=== PATIENT | male | born 1940 | race Caucasian/White ===

== ENCOUNTER 2022-04-19 13:11 | Emergency (ER) | payer BC, SELFPAY ==
[2022-04-19 13:24] VITALS: BP 167/97; PULSE 81; RESP 16; TEMP 36.6; O2SAT 97
--- NOTE | 2022-04-19 13:27 | ED.URI ---
HPI - URI/Sore Throat General Chief Complaint: Upper Respiratory Infection Stated Complaint: SINUS CONGESTION Time Seen by Provider: 04/19/22 13:22 Source: patient and RN notes reviewed Mode of arrival: ambulatory Limitations: no limitations History of Present Illness HPI Narrative: 81-year-old male presents concern for 10 day history of sinus congestion, pressure, discomfort. He denies cough, shortness of breath, fever, body aches, chills, sweats. Reports he has been using saline rinses without relief. MD elicited complaint: nasal congestion Related Data Home Medications Medication Instructions Recorded Confirmed amlodipine 10 mg tablet 10 mg PO DAILY 04/19/22 04/19/22 doxazosin 4 mg tablet 4 mg PO DAILY 04/19/22 04/19/22 gabapentin 100 mg capsule 100 mg PO DAILY 04/19/22 04/19/22 Allergies Allergy/AdvReac Type Severity Reaction Status Date / Time Penicillins Allergy Unknown Unknown Verified 04/19/22 13:17 Review of Systems Review of Systems: CONSTITUTIONAL: Denies malaise, chills, sweats, or fever. EYES: Denies visual changes, redness, or discharge. ENT: Reports rhinorrhea, congestion, sinus pain. Denies otalgia and sore throat. CARDIOVASCULAR: Denies chest pain, palpitations, or edema. RESPIRATORY: Denies cough. Denies dyspnea. GASTROINTESTINAL: Denies abdominal pain, nausea, vomiting, diarrhea SKIN: Denies rash or itching. MUSCULOSKELETAL: Denies myalgia. NEUROLOGIC: Denies headache. All systems reviewed & are unremarkable except as noted in HPI and below PMFSH Social History Social History Smoking end date: 06/09/82 Alcohol intake: current Comments At time of signature, agree with nursing past medical, surgical, social and family history. There is no relevant family history pertinent to the presenting complaint Exam Narrative: GENERAL: Well-appearing, well-nourished, and in no acute distress. HEAD: Normocephalic EYES: PERRLA, conjunctivae clear ENT: Nares clear, turbinates edematous and erythematous, clear discharge. Mucous membranes moist. TM pearly diana with dull light reflex bilaterally; no tragal tenderness. Oropharynx not erythematous without lesions. Tonsils not enlarged and without exudate, no drooling, no hoarseness, no trismus, uvula midline. NECK: Supple. No lymphadenopathy CHEST: Clear to auscultation, breath sounds equal. No wheezing, rhonchi, rales, or stridor. No respiratory distress, speaks in full sentences. HEART: Regular rate and rhythm. No murmur heard. SKIN: Warm, dry, no rash. NEURO: Alert and oriented x3. PSYCH: Normal mood and affect Course Course Emergency Course: Patient is aware of diagnosis, understands and agrees to treatment plan. Anticipatory guidance given. Patient agrees to follow-up as directed and is aware of reasons to seek care at the emergency department. Portions of this record may have been created with voice recognition software Level of Care: Express Care Visit Vital Signs Vital signs: Vital Signs Temperature 97.9 F 04/19/22 13:24 Pulse Rate 81 04/19/22 13:24 Respiratory Rate 16 04/19/22 13:24 Blood Pressure 167/97 H 04/19/22 13:24 Pulse Oximetry 97 04/19/22 13:24 Temperature 97.9 F 04/19/22 13:24 Pulse Rate 81 04/19/22 13:24 Respiratory Rate 16 04/19/22 13:24 Blood Pressure 167/97 H 04/19/22 13:24 Pulse Oximetry 97 04/19/22 13:24 Reviewed. MDM - URI/Sore Throat MDM Narrative Medical decision making narrative: Differential diagnosis considered: Castillo virus, strep pharyngitis, allergic rhinitis, upper respiratory tract infection, sinusitis, rhinosinusitis, nasopharyngitis. viral pharyngitis, otitis media, otitis externa, pneumonia, bronchitis, viral cough syndrome, viral syndrome, and influenza. Exam findings show no acute concerns or changes; patient is non-toxic appearing and is in no distress. Patient is appropriate for outpatient treatment and follow-
== END 2022-04-19 13:40 | disposition home or self-care (01) ==
PROVIDERS: Emergency Provider Nurse Practitioner; PCP Family Medicine
DX: J01.90 Acute sinusitis, unspecified (principal); B96.89 Other specified bacterial agents as the cause of diseases classified elsewhere
CPT/HCPCS: 99213; G0463

== ENCOUNTER 2022-06-20 10:38 | Emergency (ER) | payer BC, SELFPAY ==
--- NOTE | 2022-06-20 10:44 | ED.URI ---
HPI - URI/Sore Throat General Chief Complaint: Upper Respiratory Infection Stated Complaint: headache, runny nose, congestion Time Seen by Provider: 06/20/22 10:53 Source: patient and RN notes reviewed Mode of arrival: ambulatory Limitations: no limitations History of Present Illness HPI Narrative: 81-year-old male presents concern for sinus infection. Reports history of sinus deformity that puts him at risk for sinus infection. He reports frequent sinusitis. Reports 40 symptom of worsening sinus congestion, pain, pressure. Reports he uses saline rinses with no relief. He denies cough, fever, chills, sweats, body aches. MD elicited complaint: nasal congestion and sinus pain Related Data Home Medications Medication Instructions Recorded Confirmed amlodipine 10 mg tablet 10 mg PO DAILY 04/19/22 06/20/22 doxazosin 4 mg tablet 4 mg PO DAILY 04/19/22 06/20/22 gabapentin 100 mg capsule 100 mg PO DAILY 04/19/22 06/20/22 Allergies Allergy/AdvReac Type Severity Reaction Status Date / Time Penicillins Allergy Unknown Unknown Verified 06/20/22 10:55 Review of Systems Review of Systems: CONSTITUTIONAL: Denies malaise, chills, sweats, or fever. EYES: Denies visual changes, redness, or discharge. ENT: Reports rhinorrhea, congestion, sinus pain. Denies otalgia and sore throat. CARDIOVASCULAR: Denies chest pain, palpitations, or edema. RESPIRATORY: Denies cough. Denies dyspnea. GASTROINTESTINAL: Denies abdominal pain, nausea, vomiting, diarrhea SKIN: Denies rash or itching. MUSCULOSKELETAL: Denies myalgia. NEUROLOGIC: Denies headache. All systems reviewed & are unremarkable except as noted in HPI and below PMFSH Social History Social History Smoking end date: 06/09/82 Alcohol intake: current Comments At time of signature, agree with nursing past medical, surgical, social and family history. There is no relevant family history pertinent to the presenting complaint Exam Narrative: GENERAL: Well-appearing, well-nourished, and in no acute distress. HEAD: Normocephalic EYES: PERRLA, conjunctivae clear ENT: Nares clear, turbinates edematous and erythematous, yellow discharge. Mucous membranes moist. TM pearly diana with sharp light reflex bilaterally; no tragal tenderness. Oropharynx not erythematous without lesions. Tonsils not enlarged and without exudate, no drooling, no hoarseness, no trismus, uvula midline. NECK: Supple. No lymphadenopathy CHEST: Clear to auscultation, breath sounds equal. No wheezing, rhonchi, rales, or stridor. No respiratory distress, speaks in full sentences. HEART: Regular rate and rhythm. No murmur heard. SKIN: Warm, dry, no rash. NEURO: Alert and oriented x3. PSYCH: Normal mood and affect Course Course Emergency Course: Patient is aware of diagnosis, understands and agrees to treatment plan. Anticipatory guidance given. Patient agrees to follow-up as directed and is aware of reasons to seek care at the emergency department. Portions of this record may have been created with voice recognition software Level of Care: Express Care Visit Vital Signs Vital signs: Reviewed. MDM - URI/Sore Throat MDM Narrative Medical decision making narrative: Differential diagnosis considered: Castillo virus, strep pharyngitis, allergic rhinitis, upper respiratory tract infection, sinusitis, rhinosinusitis, nasopharyngitis. viral pharyngitis, otitis media, otitis externa, pneumonia, bronchitis, viral cough syndrome, viral syndrome, and influenza. Exam findings show no acute concerns or changes; patient is non-toxic appearing and is in no distress. Patient is appropriate for outpatient treatment and follow-up. Lab Data Attestation: I reviewed the patient's lab results. Critical Care Time Critical Care Time Critical Care Time: No Discharge Plan Discharge Clinical Impression: Chronic sinusitis Patient Disposition: Home, Self-Care Condition:
[2022-06-20 10:50] VITALS: BP 148/92; PULSE 74; RESP 16; TEMP 36.4; O2SAT 98
[2022-06-20 10:55] VITALS: BP 148/92; PULSE 74; RESP 16; TEMP 36.4; O2SAT 98
== END 2022-06-20 11:04 | disposition home or self-care (01) ==
PROVIDERS: Emergency Provider Nurse Practitioner; PCP Family Medicine
DX: J32.9 Chronic sinusitis, unspecified (principal)
CPT/HCPCS: 99213; G0463

== ENCOUNTER → 2022-07-18 08:58 | Outpatient (CLI) | payer BC, SELFPAY ==
--- NOTE | ~2022-07-18 | CT_ITS ---
EXAMINATION: CT sinus wo con DATE: 07/18/2022 09:09 INDICATION: Chronic sinusitis. TECHNIQUE: Computed tomography (CT) of the paranasal sinuses was performed without intravenous contra st. Iterative reconstruction technique was employed. The dose-length product was 285.32 mGy-cm. COMPARISON: None FINDINGS: There is mild mucosal thickening in the frontal sinuses. There is mild mucosal thickening i n the bilateral anterior and posterior ethmoid sinuses. The sphenoid sinuses are clear. There is mode rate mucosal thickening in the maxillary sinuses. There is rightward deviation of the nasal septum. T he middle turbinates are partially paradoxical. Right ostiomeatal unit is patent. Left ostiomeatal un it is occluded at the hiatus semilunaris. There is a Priya cell on the left. IMPRESSION: 1. Mucosal thickening in the paranasal sinuses. Reviewed, dictated and finalized at location A. EXPORT OPERATIONS AGENT
== END ==
PROVIDERS: PCP Family Medicine; Visit Provider Otolaryngology
DX: J32.9 Chronic sinusitis, unspecified (principal)
CPT/HCPCS: 70486

== ENCOUNTER 2023-05-27 09:12 | Emergency (ER) | payer BC, SELFPAY ==
[2023-05-27 09:52] VITALS: BP 147/73; PULSE 89; RESP 20; TEMP 36.2; O2SAT 95
--- NOTE | 2023-05-27 10:06 | ED.URI ---
HPI - URI/Sore Throat General Chief Complaint: Upper Respiratory Infection Stated Complaint: cough,congestion Time Seen by Provider: 05/27/23 09:58 Source: patient and RN notes reviewed Mode of arrival: ambulatory Limitations: no limitations History of Present Illness HPI Narrative: 82-year-old male presents with concern for 3 day history of cough, nasal congestion. He reports he has been taking NyQuil. He reports feeling feverish but did not take his temperature. He denies any known sick contacts. MD elicited complaint: cough Related Data Home Medications Medication Instructions Recorded Confirmed amlodipine 10 mg tablet 10 mg PO DAILY 04/19/22 05/27/23 doxazosin 4 mg tablet 4 mg PO DAILY 04/19/22 05/27/23 gabapentin 100 mg capsule 100 mg PO TID 04/19/22 05/27/23 Allergies Allergy/AdvReac Type Severity Reaction Status Date / Time Penicillins AdvReac Mild Hives Verified 05/27/23 09:36 Review of Systems Review of Systems: CONSTITUTIONAL: Denies malaise, chills, sweats. Reports tactile fever. EYES: Denies visual changes, redness, or discharge. ENT: Reports rhinorrhea, congestion. Denies sinus pain, otalgia and sore throat. CARDIOVASCULAR: Denies chest pain, palpitations, or edema. RESPIRATORY: Reports cough. Denies dyspnea. GASTROINTESTINAL: Denies abdominal pain, nausea, vomiting, diarrhea SKIN: Denies rash or itching. MUSCULOSKELETAL: Denies myalgia. NEUROLOGIC: Denies headache. All systems reviewed & are unremarkable except as noted in HPI and below PMFSH Social History Social History Smoking end date: 06/09/82 Alcohol intake: current Comments At time of signature, agree with nursing past medical, surgical, social and family history. There is no relevant family history pertinent to the presenting complaint Exam Narrative: GENERAL: Well-appearing, well-nourished, and in no acute distress. HEAD: Normocephalic EYES: PERRLA, conjunctivae clear ENT: Nares clear. Mucous membranes moist. TM pearly diana with sharp light reflex bilaterally; no tragal tenderness. Oropharynx not erythematous without lesions. Tonsils not enlarged and without exudate, no drooling, no hoarseness, no trismus, uvula midline. NECK: Supple. No lymphadenopathy CHEST: Clear to auscultation, breath sounds equal. No wheezing, rhonchi, rales, or stridor. No respiratory distress, speaks in full sentences. HEART: Regular rate and rhythm. No murmur heard. SKIN: Warm, dry, no rash. NEURO: Alert and oriented x3. PSYCH: Normal mood and affect Course Course Emergency Course: Patient is aware of diagnosis, understands and agrees to treatment plan. Anticipatory guidance given. Patient agrees to follow-up as directed and is aware of reasons to seek care at the emergency department. Portions of this record may have been created with voice recognition software Level of Care: Express Care Visit Vital Signs Vital signs: Vital Signs Temperature 97.1 F L 05/27/23 09:52 Pulse Rate 89 05/27/23 09:52 Respiratory Rate 20 05/27/23 09:52 Blood Pressure 147/73 H 05/27/23 09:52 Pulse Oximetry 95 05/27/23 09:52 Oxygen Delivery Room Air 05/27/23 09:52 Temperature 97.1 F L 05/27/23 09:52 Pulse Rate 89 05/27/23 09:52 Respiratory Rate 20 05/27/23 09:52 Blood Pressure 147/73 H 05/27/23 09:52 Pulse Oximetry 95 05/27/23 09:52 Oxygen Delivery Room Air 05/27/23 09:52 Reviewed. MDM - URI/Sore Throat MDM Narrative Medical decision making narrative: Differential diagnosis considered: Castillo virus, strep pharyngitis, allergic rhinitis, upper respiratory tract infection, sinusitis, rhinosinusitis, nasopharyngitis. viral pharyngitis, otitis media, otitis externa, pneumonia, bronchitis, viral cough syndrome, viral syndrome, and influenza. Exam findings show no acute concerns or changes; patient is non-toxic appearing and is in no distress. Patient is appropri
== END 2023-05-27 10:10 | disposition home or self-care (01) ==
PROVIDERS: Emergency Provider Nurse Practitioner; PCP Family Medicine
DX: B34.9 Viral infection, unspecified (principal); Z79.899 Other long term (current) drug therapy; Z20.822 Contact with and (suspected) exposure to COVID-19
CPT/HCPCS: 87426; 99213; C9803; G0463

== ENCOUNTER 2024-10-07 13:03 | Outpatient (CLI) | payer BC, SELFPAY ==
[2024-10-07 13:34] LABS: Hematocrit 41.7 % (42.0-52.0); Hemoglobin 13.7 g/dL (14.0-18.0); Mean Corpuscular HGB Conc 32.9 g/dl (32-36); Mean Corpuscular Hemoglobin 28.4 pg (26-34); Mean Corpuscular Volume 86.3 fl (80-100); Mean Platelet Volume 10.2 fl (7.4-10.4); Platelet Count Result 157 k/mm3 (150-375); Red Blood Count 4.83 M/mm3 (4.6-6.20); White Blood Count 7.9 K/mm3 (4.5-10.0)
[2024-10-07 13:43] LABS: Add Urine Microscopic? YES; Appearance Urine Clear (Clear); Bacteria Urine None Seen /hpf; Bilirubin Urine Negative (Negative); Blood Urine Negative (Negative); Color Urine Yellow (Yellow); Glucose Urine UA Negative (Negative); Ketones Urine Negative (Negative); Leukocyte Esterase Ur Negative LEU/UL (Negative); Nitrate Urine Negative (Negative); Non Pathogenic Casts 0-2; Protein Urine Trace mg/dL (Negative); RBC Urine 0-2 /hpf (0-2); Specific Grav Ur 1.012 (1.001-1.035); Squamous Epithelial Cell Urine None Seen /hpf (Few); Urobilinogen Urine 0.2 mg/dL (<2.0); WBC Urine 0-5 /hpf (0-3); pH Urine 5.5 (5.0-9.0)
[2024-10-07 13:44] LABS: Albumin Level 4.2 g/dL (3.5-5.1); Anion Gap 10 mmol/L (4-12); Blood Urea Nitrogen 24 mg/dL (9-20); Calcium 8.9 mg/dL (8.4-10.2); Carbon Dioxide 23 mmol/L (22-30); Chloride 108 mmol/L (98-107); Creatine Kinase 120 U/L (55-170); Estimated Glomerular Filt Rate > 60; Glucose 92 mg/dL (65-110); Phosphorus 4.1 mg/dL (2.5-4.5); Potassium 4.2 mmol/L (3.4-5.0); Sodium 141 mmol/L (137-145)
[2024-10-07 13:46] LABS: Creatinine Urine 78.3 mg/dL; Total Protein Urine Random 23 mg/dL; Ur Ttl Prot Creatinine Ratio 0.29 mg/mg (0-0.20)
[2024-10-07 13:52] LABS: Complement C3 102 mg/dL (88-165)
[2024-10-07 13:57] LABS: Parathyroid Intact 43.2 pg/mL (14.5-75.2)
[2024-10-07 14:01] LABS: Erythrocyte Sedimentation Rate 14 mm/hr (0-20)
--- OUTSIDE RECORDS SUMMARY | 2024-10-07 14:03 | XMS_ITS | Data Portability ---
Author Organization [facility] [address], Main Office Address [address] [place] [address] Assessment No assessment recorded. Plan of Treatment Reminders Order Date Submit Date Provider Last Modified By Organization Details Last Modified Time Details Appointments None record ed. Lab None record ed. Referral None record ed. Procedures None record ed. Surgeries None record ed. Imaging None record ed. Medication Orders None record ed. Patient TargetsNo targets recorded. Patient Instructions Encounter Date Encounter Id Patient Instructions Last Modified By Organization Details Last Modified Time 08/20/2022 [id number] since he is not symptomatic surgical intervention is not recommended. We may use antibiotics from time to time however. [email or web address] Not available 08/20/2022 11:55:49 Reason for Referral None Reported. Results Created Date Observation Date Name Description Value Unit Range Abnormal Flag Note LastModifiedBy Organization Detail LastModifiedTime 07/18/19 23 07/18/2022 CT, sinus es, w/o contr ast No observ ation record ed. [id number] [facility] [address], [place], [address], 08/08/2022 01:48:18 07/19/19 23 07/18/2022 CT, sinus es, w/o contr ast No observ ation record ed. [id number] [facility] [address], [place], [address], 08/08/2022 01:48:18 Result Notes None recorded. 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 Procedures Surgical History None recorded. Imaging Results Imaging Date Name Status LastModified by Organiz ation Details LastModified Time 07/18/2022 CT, sinuses, w/o contrast completed [id number] [facility] [address], [place], [address], 08/08/2022 01:48:18 07/18/2022 CT, sinuses, w/o contrast completed [id number] [facility] [address], [place], [address], 08/08/2022 01:48:18 Procedure Notes None recorded. Medical Equipment None Reported. Allergies Allergen ID Allergen Name Allergen Category Reaction Reaction Severity Criticality Documentation Date Start Date Code Code System Note Provider Name and Address Organization Details Recorded Time 07740 Product containin g penicilli n (product) medicatio n Not available Not available Not available 08/08/2022 30316 8001 SNOMED Not Available [facility] 3 01:48:14 Medications Name Sig Start Date Stop Date Status Note LastModified by Organization Details LastModified Time doxycycline hyclate 100 mg capsule 07/11 completed Not Available Not Available Not Available azithromyci n 250 mg tablet 08/19 completed Not Available Not Available Not Available amlodipine 5 mg tablet 07/11 completed Not Available Not Available Not Available doxycycline monohydrate 100 mg tablet TAKE 1 TABLET BY MOUTH TWICE DAILY FOR 7 DAYS 07/11 completed Not Available Not Available Not Available amlodipine 10 mg tablet active Not Available Not Available Not Available triamcinolo ne acetonide 0.1 % topical ointment APPLY TOPICALLY TO THE AFFECTED AREA ON RIGHT FOREARM TWICE DAILY active Not Available Not Available No t Available doxazosin 4 mg tablet active Not Available Not Available No t Available mupirocin 2 % topical ointment APPLY SMALL AMOUNT TOPICALLY TO THE AFFECTED AREA THREE TIMES DAILY 2023 active Not Available Not Available Not Avai lable gabapentin 100 mg capsule active Not Available Not Available Not Available methylpredn isolone 4 mg tablets in a dose pack FOLLOW PACKAGE DIRECTION S 10/09 completed Not Available Not Available Not Available cefdinir 300 mg capsule TAKE 1 CAPSULE BY MOUTH TWICE DAILY FOR 10 DAYS active Not Available Not Available No t Available fluticasone propionate 50 mcg/actuati on nasal spray,suspe nsion SHAKE LIQUID AND USE 2 SPRAYS IN EACH NOSTRIL DAILY FOR 14 DAYS active Not Available Not Available No t Available naproxen 500 mg tablet active Not Available Not Available Not Available chlorhexidi ne gluconate 0.12 % mouthwash active Not Available Not Available No t Available aspirin 81 mg capsule Take 1 capsule every day by oral route. 2022 active Not Available Not Available Not Avai lable Vitals Date Recorded Body mass index (BMI) Body height Body temperature Body weight Provider Name and Address Organization Details Last Updated DateTime 07/11/2022 30.1 kg/m2 185.42 cm 97.6 [degF] 393044.0 6 g Not Available [facility] 08/08/2022 01:47:31 Date Recorded Body height Body mass index (BMI) Body weight Body temperature Provider Name and Address Organization Details Last Updated DateTime 08/20/2022 185.42 cm 30.2 kg/m2 847897.65 g 97.7 [degF] Cheryl Mota CMA [place] [facility] [place] [employer] [facility] 08/20/2022 11:37:18 Social History Question Answer Notes LastModified by Organizat ion Details LastModified Time Tobacco Smoking Status Former Smoker Not Available [facility] 08/08/2022 01:46:59 What Is Your Level Of Alcohol Consumption? Occasional [id number] Information not available 08/08/2022 Sex: Unknown Functional Status None recorded. Mental Status None recorded. Family History Relationship Description Onset Age of this Age Resolved Age Notes LastModified by Organization Details LastModified Time Father No current problems or disability [id number] Not available 08/08/2022 01:47:27 Mother No current problems or disability [id number] Not available 08/08/2022 01:47:27 Medical History Condition Response USE OF BLOOD THINNERS Y HYPERTENSION Y Past Encounters Encounter ID Performer Location Encounter Start Date Encounter Closed Date Diagnosis/Indication Diagnosis SNOMED-CT Code Diagnosis ICD10 Code Diagnosis Note [id number] MD REANNA [facility] [place] [address] [place] [address] 07/11/2022 00:00:00 07/11/2022 14:29:39 [id number] MD REANNA [facility] [place] [address] [place] [address] 08/20/2022 11:21:54 08/20/2022 11:59:34 Chronic pansinusitis 12925343 J32.4 Perforatio n of nasal septum 66491851 J34.89 Health Concerns Section Related Observation LastModified by Organization Detai ls LastModified Time None Recorded Concern Status LastModified by Organization Details LastModified Time None Recorded Advance Directives Directive None Recorded Payers Encounter Date Sequence Insurance Name Policy Number Policy Yadav Covered Member ID Yadav Member ID Guarantor Name 08/20/2022 1 [place] [employer] ([place]) [address] Rodney Little [id number] Rodney Little Notes Date Note Type Note Provider Name and Address Organization Details Recorded Time 08/20/2022 text/html The CT scan demonstrates pansinus use sinus but he reports that he is doing very well with Bactroban. He reports that he is otherwise asymptomatic. Shadi Roman MD [address] [place] [address], [facility] [address], [place], [address], [facility] 08/20/2022 11:56:09
[2024-10-11 13:39] LABS: Complement Total CH50 57 U/mL (31-60)
[2024-10-12 11:03] LABS: Kappa\\Lambda Light Chains 1.77 (0.26-1.65); Lambda Light Chain 22.7 mg/L (5.7-26.3)
== END 2024-10-07 13:04 | disposition home or self-care (01) ==
LOC: ANHLAB 13:04
PROVIDERS: PCP Family Medicine; Visit Provider Internal Medicine Nephrology
DX: R94.4 Abnormal results of kidney function studies (principal)
CPT/HCPCS: 36415; 80069; 81001; 82550; 82570; 83883; 83970; 84156; 85027; 85652; 86038; 86039; 86160; 86162; 86334

== ENCOUNTER 2024-10-08 14:57 | Outpatient (NON) | payer BC, SELFPAY ==
[2024-10-08 15:21] LABS: Total Volume 24 Hour Urine 1950 ml
--- OUTSIDE RECORDS SUMMARY | 2024-10-09 14:45 | XMS_ITS | Data Portability ---
Author Organization [facility] [email or web address], Main Office Address [address] [place] [address] Assessment No assessment recorded. Plan of Treatment [...] By Organization Details Last Modified Time 08/20/2022 [id number] since he is not symptomatic surgical intervention is not recommended. We may use antibiotics from time to time however. [email or web address] Not available 08/20/2022 11:55:49 Reason for Referral None Reported. Results Created Date Observation Date Name Description Value Unit Range Abnormal Flag Note LastModifiedBy Organization Detail LastModifiedTime 07/18/19 23 07/18/2022 CT, sinus es, w/o contr ast No observ ation record ed. [id number] [facility] [address], [place], [address], 08/08/2022 01:48:18 07/19/19 23 07/18/2022 CT, sinus es, w/o contr ast No observ ation record ed. [id number] [facility] [address], [place], [address], 08/08/2022 01:48:18 Result Notes None recorded. Problems Name Problem SNOMED Code Status Onset Date Resolution Date Notes Provider Name and Address Organization Details Recorded Time Chronic sinusitis 08076942 Active 2022 Not Available [facility] 01:47:47 Perforation of nasal septum 24294718 Active 2022 Not Available [facility] 3 01:47:47 Chronic pansinusitis 56070484 Active 2022 Shadi Roman MD [address] [facility], [facility] [address], [place], [address] , [facility] 11:55:08 Problem Notes None recorded. Procedures Surgical History None recorded. Imaging Results Imaging Date Name Status LastModified by Organiz ation Details LastModified Time 07/18/2022 CT, sinuses, w/o contrast completed [id number] [facility] [address], [place], [address], 08/08/2022 01:48:18 07/18/2022 CT, sinuses, w/o contrast completed [id number] [facility] [address], [place], [address], 08/08/2022 01:48:18 Procedure Notes None recorded. Medical Equipment None Reported. Allergies Allergen ID Allergen Name Allergen Category Reaction Reaction Severity Criticality Documentation Date Start Date Code Code System Note Provider Name and Address Organization Details Recorded Time 41213 Product containin g penicilli n (product) medicatio n Not available Not available Not available 08/08/2022 99354 8001 SNOMED Not Available [facility] 3 01:48:14 Medications Name Sig Start Date [...] 07/11/2022 30.1 kg/m2 185.42 cm 97.6 [degF] 420975.0 6 g Not Available [facility] 08/08/2022 01:47:31 Date Recorded Body height Body mass index (BMI) Body weight Body temperature Provider Name and Address Organization Details Last Updated DateTime 08/20/2022 185.42 cm 30.2 kg/m2 042037.65 g 97.7 [degF] Cheryl Mota CMA [place] [facility] [place] [facility] 08/20/2022 11:37:18 Social History Question Answer Notes LastModified by Organizat ion Details LastModified Time Tobacco Smoking Status Former Smoker Not Available [facility] 08/08/2022 01:46:59 What Is Your Level Of Alcohol Consumption? Occasional [id number] Information not available 08/08/2022 Sex: Unknown Functional Status None recorded. Mental Status None recorded. Family History Relationship Description Onset Age of this Age Resolved Age Notes LastModified by Organization Details LastModified Time Father No current problems or disability [id number] Not available 08/08/2022 01:47:27 Mother No current problems or disability [id number] Not available 08/08/2022 01:47:27 Medical History Condition Response USE OF BLOOD THINNERS Y HYPERTENSION Y Past Encounters Encounter ID Performer Location Encounter Start Date Encounter Closed Date Diagnosis/Indication Diagnosis SNOMED-CT Code Diagnosis ICD10 Code Diagnosis Note [id number] MD REANNA [facility] [address] [place] [address] 07/11/2022 00:00:00 07/11/2022 14:29:39 [id number] MD REANNA [facility] [address] [place] [address] 08/20/2022 11:21:54 08/20/2022 11:59:34 Chronic pansinusitis 21115481 J32.4 Perforatio n of nasal septum 78425269 J34.89 Health Concerns Section Related Observation LastModified by Organization Detai ls LastModified Time None Recorded Concern Status LastModified by Organization Details LastModified Time None Recorded Advance Directives Directive None Recorded Payers Encounter Date Sequence Insurance Name Policy Number Policy Yadav Covered Member ID Yadav Member ID Guarantor Name 08/20/2022 1 [place] [employer] [place] 113 Rodney Little [id number] Rodney Little Notes Date Note Type Note Provider Name and Address Organization Details Recorded Time 08/20/2022 text/html The CT scan demonstrates pansinus use sinus but he reports that he is doing very well with Bactroban. He reports that he is otherwise asymptomatic. Shadi Roman MD [address] [place] [address], [facility] [address], [place], [address], [facility] 08/20/2022 11:56:09
--- OUTSIDE RECORDS SUMMARY | 2024-10-09 14:45 | XMS_ITS | Referral Summary ---
Author Organization [facility] Address [address] [place] [address] Care Team Providers Care Process Planner Name Role Phone Yifan Duke MD Primary Care Provider [phone]- [phone] Encounters Date Type Department Care Team Description 08/02/2024 10:30 AM EXHIBITIONS CURATOR Office Visit [facility] [address] [facility] [address] [place] [address] ЕленаKhari Si, MD Polyneuropathy (Primary Dx); Low serum vitamin B12; Impaired fasting glucose from Last 3 Months Allergies Active Allergy Reactions Criticality Noted Date Comments Penicillins Hives,Other (See comments),Rash,Swollen tongue High 08/24/2015 rash tongue turned black-was a long time ago tongue turned black Medications amLODIPine (NORVASC) 10 mg tablet Take by mouth daily 4 Active amLODIPine (NORVASC) 5 mg tablet Take 1 tablet (5 mg total) by mouth daily 5 Active chlorhexidine (PERIDEX) 0.12 % oral rinse 3 Active doxazosin (CARDURA) 4 mg tablet TAKE 1 TABLET(4 MG) BY MOUTH DAILY 6 Active gabapentin (NEURONTIN) 100 mg capsule Take 1 capsule (100 mg total) by mouth 3 (three) times a day 3 Active mupirocin (BACTROBAN) 2 % ointment APPLY A SMALL AMOUNT TO THE AFFECTED AREA THREE TIMES DAILY 3 Active naproxen (NAPROSYN) 500 mg tablet TAKE 1 TABLET(500 MG) BY MOUTH EVERY 12 HOURS NEEDED 5 Active triamcinolone (KENALOG) 0.1 % ointment APPLY TOPICALLY TO THE AFFECTED AREA ON RIGHT FOREARM TWICE DAILY Active cefdinir (OMNICEF) 300 mg capsule TAKE 1 CAPSULE BY MOUTH TWICE DAILY FOR 10 DAYS Active aspirin 81 mg capsule Take 1 capsule every day by oral route. 3 Active fluticasone propionate (FLONASE) 50 mcg/actuation nasal spray SHAKE LIQUID AND USE 2 SPRAYS IN EACH NOSTRIL DAILY FOR 14 DAYS Active Active Problems Problem Noted Date Diagnosed Date Paresthesia 07/09/2024 Acute pain of right shoulder 01/27/2023 Chronic pansinusitis 08/20/2022 Chronic sinusitis 07/10/2022 Perforation of nasal septum 07/10/2022 Obesity (BMI 30.0-34.9) 02/26/2022 Dupuytren contracture 08/24/2015 Enlarged prostate without lo wer urinary tract symptoms (luts) 08/24/2015 HTN (hypertension) 08/24/2015 Unspecified symptoms and sig ns involving the genitourinary system 07/20/2015 Social History Tobacco Use Types Packs/Day Years Used Date Smoking Tobacco: Never Smokeless Tobacco: Never Tobacco Cessation:Counseling Given: Not Answered Sex and Gender Information Value Date Recorded Sex Assigned at Not on file Legal Sex Male 5:21 AM EXHIBITIONS CURATOR Gender Identity Not on file Sexual Orientation Not on file Last Filed Vital Signs Vital Sign Reading Time Taken Comments Blood Pressure 138/78 08/02/2024 10:22 AM EXHIBITIONS CURATOR Pulse 79 08/02/2024 10:22 AM EXHIBITIONS CURATOR Temperature 36.3 C (97.3 F) 04/16/2017 8:19 AM EXHIBITIONS CURATOR Respiratory Rate - - Oxygen Saturation 99% 04/16/2017 8:19 AM EXHIBITIONS CURATOR Inhaled Oxygen Concentration - - Weight 102.1 kg (225 lb) 08/02/2024 10:22 AM EXHIBITIONS CURATOR Height 185.4 cm (6' 1 ) 08/02/2024 10:22 AM EXHIBITIONS CURATOR Body Mass Index 29.69 08/02/2024 10:22 AM EXHIBITIONS CURATOR Plan of Treatment Not on file Insurance MEDICARE [facility] FEDERAL [facility] FEDERAL MEDICARE Care Teams Process Planner Relationship Specialty [place] [address] [address] [place] [phone] PCP - General Family Practice 03/29/24
--- OUTSIDE RECORDS SUMMARY | 2024-10-09 14:45 | XMS_ITS | Encounter Summary ---
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 Historical Provider Final Res ult documented in this encounter Visit Diagnoses Not on filedocumented in this encounter Care Teams Director Of Golf Relationship Specialty [place] [address] [address] PCP - General Family Practice 03/29/24 documented as of this encounter
--- OUTSIDE RECORDS SUMMARY | 2024-10-09 14:45 | XMS_ITS | Continuity of Care Document ---
Author Organization [facility] Address [address] [place] [address] [address] [place] [address] Phone Care Team Providers Care Police Captain Name Role Phone Marquez Palmer Unavailable Unavailable Procedures Procedure Date Eye Exam & Treatment Refraction Office/outpatient Visit, [facility] No Script Advance Directives Directive Yes / No Effective Date File Name No Information Encounters Encounter Description Practice Location Reason(s) For Visit Diagnoses Date Provider Providers Copied on Encounter [facility], [id number] [place] [address] [address], [place], [place], [id number], [place] tel:[phone] [facility] No Information 0 Estela Zayas. [address] [facility] [place] , [address], [place], [place], [facility], [place]. tel:[phone] Office/outpat ient Visit, [facility], [address] [place] [address] [address], [place], [place], [address], [place] tel:[phone] [facility] No Information [address]oso. [address] [facility] [address], [place], [place], [facility], [place]. tel:[phone] Family History Family Member Type Diagnosis Age At Onset No Information Payers Payer name Insurance type Covered republican ID Authoriza tion(s) [place] FEP BL [id number] Social History Type Description Quantity Date Captured [...]
--- OUTSIDE RECORDS SUMMARY | 2024-10-09 14:45 | XMS_ITS | Clinical Summary ---
Author Organization [facility] Address [address] [place] [address] Care Team Providers Care Epic Cupid Analyst Name Role Phone Yifan Duke MD Primary Care Provider [phone]- [phone] Allergies Active Allergy Reactions Criticality Noted Date [...] 1 capsule every day by oral route. Active fluticasone propionate (FLONASE) 50 mcg/actuation nasal [...] sig ns involving the genitourinary system 07/20/2015 Encounters Date Type Department Care Team Description 08/02/2024 10:30 AM COMBUSTION ANALYST Office Visit [facility] Neu[facility] [address] [place] [address] Khari Christiansen Si, MD Polyneuropathy (Primary Dx); Low serum vitamin B12; Impaired fasting glucose from Last 3 Months Social History Tobacco Use Types Packs/Day Years Used Date Smoking Tobacco: Never Smokeless Tobacco: Never Tobacco Cessation:Counseling Given: Not Answered Sex and Gender Information Value Date Recorded Sex Assigned at Not on file Legal Sex Male 5:21 AM COMBUSTION ANALYST Gender Identity Not on file Sexual Orientation Not on file Obstetrics History Last Filed Vital Signs Vital Sign Reading Time Taken Comments Blood Pressure 138/78 08/02/2024 10:22 AM COMBUSTION ANALYST Pulse 79 08/02/2024 10:22 AM COMBUSTION ANALYST Temperature 36.3 C (97.3 F) 04/16/2017 8:19 AM COMBUSTION ANALYST Respiratory Rate - - Oxygen Saturation 99% 04/16/2017 8:19 AM COMBUSTION ANALYST Inhaled Oxygen Concentration - - Weight 102.1 kg (225 lb) 08/02/2024 10:22 AM COMBUSTION ANALYST Height 185.4 cm (6' 1 ) 08/02/2024 10:22 AM COMBUSTION ANALYST Body Mass Index 29.69 08/02/2024 10:22 AM COMBUSTION ANALYST Plan of Treatment Health Maintenance Due Date Last Done Comments Depression Screening 1938 Fall Risk Assessment 1940 DTaP/Tdap/Td Vaccine (1 - Tdap) 1949 Hepatitis B Screening 1956 Zoster Vaccine (1 of 2) 1988 Well Visit 65+ 12/14/2003 Covid-19 Vaccine (4 - 2023-2 5 season) 2024 05/06/2021, 09/01/2020, 08/04/2020 Influenza Vaccine (#1) 2024 , 03/29/2022, 05/06/2021, Additional history exists Pneumococcal vaccine 65+ Completed 02/24/2017, 12/2011 Insurance MEDICARE [facility] Address: [address] [place] [address] [facility] Address: [address] [place] [id number] MEDICARE Care Teams Epic Cupid Analyst Relationship Specialty [place] [address] [address] PCP - General Family Practice 03/29/24
--- OUTSIDE RECORDS SUMMARY | 2024-10-09 14:45 | XMS_ITS | Encounter Summary ---
Author Organization [facility] Care Team Providers Care Sawyer Helper Name Role Phone Yifan Duke MD Primary Care Provider [phone]- [phone] Encounter Details Date Type Department Care Team (Latest Contact Info) Description 05/23/2016 Orders Only [facility] CLINCONV ProviderAbby MD [address] [place] [address] Social History Tobacco Use Types Packs/Day Years Used Date Smoking Tobacco: Never Assessed Sex and Gender Information Value Date Recorded Sex Assigned at Not on file Legal Sex Male 5:21 AM LADLE REPAIRER Gender Identity Not on file Sexual Orientation Not on file documented as of this encounter Plan of Treatment Not on file documented as of this encounter Procedures Procedure Name Priority Date/Time Associated Diagnosis Comments PROCEDURE - RESULT 05/23/2016 12 :00 AM LADLE REPAIRER documented in this encounter Results * PROCEDURE - RESULT (05/23/2016 12:00 AM LADLE REPAIRER) Narrative 05/23/2016 12:00 AM LADLE REPAIRER Ordered by an unspecified provider. Historical Provider Final Res ult documented in this encounter Visit Diagnoses Not on filedocumented in this encounter Care Teams Sawyer Helper Relationship Specialty [place] [address] [address] PCP - General Family Practice 03/29/24 documented as of this encounter
--- OUTSIDE RECORDS SUMMARY | 2024-10-09 14:45 | XMS_ITS | Clinical Summary ---
Author Organization [facility] Address [address] [place] [address] Care Team Providers Care Household Manager Name Role Phone Yifan Duke MD Primary Care Provider [phone] Allergies Active Allergy Reactions Criticality Noted Date Comments Penicillins Hives Low 08/24/2015 Medications chlorhexidine (PERIDEX) 0.12 % solution 07/16/19 23 Active mupirocin (BACTROBAN) 2 % ointment APPLY A SMALL AMOUNT TO THE AFFECTED AREA THREE TIMES DAILY 07/12/19 23 Active gabapentin (NEURONTIN) 100 MG capsuleIndicatio ns:Neuropathy TAKE 1 CAPSULE BY MOUTH THREE TIMES DAILY 270 capsule 1 08/06/19 25 Active fluticasone propionate (FLONASE) 50 MCG/ACT nasal spray SHAKE LIQUID AND USE 2 SPRAYS IN EACH NOSTRIL DAILY FOR 14 DAYS Active triamcinolone (KENALOG) 0.1 % ointment APPLY TOPICALLY TO THE AFFECTED AREA ON RIGHT FOREARM TWICE DAILY Active naproxen (NAPROSYN) 500 MG tabletIndication s:Lip abscess TAKE 1 TABLET(500 MG) BY MOUTH EVERY 12 HOURS NEEDED 20 tablet 10/08/19 25 Active doxazosin (CARDURA) 4 MG tabletIndication s:Hypertension, unspecified type TAKE 1 TABLET(4 MG) BY MOUTH DAILY 90 tablet 1 10/08/19 25 Active amLODIPine (NORVASC) 10 MG tabletIndication s:Uncontrolled hypertension TAKE 1 TABLET(10 MG) BY MOUTH DAILY 90 tablet 1 10/08/19 25 Active naproxen (NAPROSYN) 500 MG tabletIndication s:Lip abscess TAKE 1 TABLET(500 MG) BY MOUTH EVERY 12 HOURS NEEDED 20 tablet 01/20/20 24 025 Discontinued doxazosin (CARDURA) 4 MG tabletIndication s:Hypertension, unspecified type TAKE 1 TABLET(4 MG) BY MOUTH DAILY 90 tablet 1 03/08/20 24 025 Discontinued amLODIPine (NORVASC) 10 MG tabletIndication s:Uncontrolled hypertension TAKE 1 TABLET(10 MG) BY MOUTH DAILY 90 tablet 1 04/13/20 24 025 Discontinued Active Problems Problem Noted Date Diagnosed Date Paresthesia 07/09/2024 Acute pain of right shoulder 01/27/2023 Chronic pansinusitis 08/20/2022 Chronic sinusitis 07/10/2022 Perforation of nasal septum 07/10/2022 Obesity (BMI 30.0-34.9) 02/26/2022 Dupuytren contracture 08/24/2015 Enlarged prostate without lo wer urinary tract symptoms (luts) 08/24/2015 HTN (hypertension) 08/24/2015 Unspecified symptoms and sig ns involving the genitourinary system 07/20/2015 Resolved Problems Problem Noted Date Diagnosed Date Resolved Date Abscess 02/23/2018 07/30/2021 Lip abscess 02/23/2018 07/30/2021 Wears glasses 08/22/2017 02/18/2020 Encounters Date Type Department Care Team Description 09/13/2024 Scan [facility] INFO SRVCS Scanned, [facility] 09/06/2024 Telephone [facility] Family & Internal [address] [address] Yifan Duke MD Question 09/01/2024 Orders Only [facility] Family & Internal [address] [address] Yifan Duke MD 08/30/2024 12:41 PM CDT - 08/30/2024 11:59 PM CDT Hospital Encounter [facility] [address] [place] [address] Yifan Duke MD Discharge Disposition: Home or Self Care (Routine Discharge) 08/30/2024 9:10 AM CDT Laboratory Only [facility] Family & Internal [address] [address] Yifan Duke MD 08/30/2024 8:40 AM CDT Office Visit [facility] Family & Internal Medicine [address] [address] Yifan Duke MD Follow Up; Hypertension 08/30/2024 Scan [facility] INFO SRVCS Scanned, [facility] 08/30/2024 Travel from Last 3 Months Immunizations Immunization Administration Dates Next Due Fluzone 6 Months+ Quad (0.5 mL Prefilled Syringe) 03/15/2019 Fluzone High Dose - >Age 65 (Prefilled Syringe) 03/29/2022,03/28/2020,02/24/2017,2015,04/27/2015,04/07/2014 Influenza Adult (Generic) 05/06/2021,,02/27/2016,2011 MODERNA COVID-19 (12+) MRNA, LNP-S, PF, 100 MCG/ 0.5 ML DOSE 09/01/2020,08/04/2020 MODERNA COVID-19 (STENOGRAPHER [employer] CESAR CARINE), MRNA, LNP-S, PF, 50 MCG/ 0.25 ML DOSE 05/06/2021 Pneumococcal (Pneumovax 23) 05/15/2012 Pneumococcal (Prevnar 13) 02/24/2017 Family History Medical History Relation Comments Cancer Father Hypertension Mother Relation Status Comments Father Mother Social History Tobacco Use Types Packs/Day Years Used Date Smoking Tobacco: Former Cigarettes 2 15 1 970 - 1985 Smokeless Tobacco: Never Tobacco Cessation:Counseling Given: No Alcohol Use Standard Drinks/Week Comments Yes 0 (1 standard drink = 0.6 oz pur e alcohol) rare, occasional PHQ-2 Answer Date Recorded Patient Health Questionnaire-2 Score 0 01/27/2023 Sex and Gender Information Value Date Recorded Sex Assigned at Male 08/30/2024 9:06 AM CDT Legal Sex Male 4:41 PM CDT Gender Identity Male 08/30/2024 9:06 AM CDT Sexual Orientation Not on file Last Filed Vital Signs Vital Sign Reading Time Taken Comments Blood Pressure 157/85 08/30/2024 8:26 AM CDT Pulse 67 08/30/2024 8:26 AM CDT Temperature 36.4 C (97.5 F) 08/30/2024 8:26 AM CDT Respiratory Rate 16 08/30/2024 8:26 AM CDT Oxygen Saturation 96% 08/30/2024 8:26 AM CDT Inhaled Oxygen Concentration - - Weight 97.5 kg (215 lb) 08/30/2024 8:26 AM CDT Height 182.9 cm (6') 08/30/2024 8:26 AM CDT Body Mass Index 29.16 08/30/2024 8:26 AM CDT Plan of Treatment Upcoming Encounters Date Type Department Care Team (Late st Contact Info) Description 03/07/2025 9:40 AM CDT Office Visit [facility] Family & Internal Medicine - [place] [address] [place] [address] [place] [address] [place] [address] Health Maintenance Due Date Last Done Comments DTaP, Tdap and Td Vaccines ( 1 - Tdap) 1957 Zoster Vaccines (1 of 2) 1988 RSV Immunization or 60+ Years (1 - 1-dose 75+ series) 2013 COVID-19 Vaccine (4 - 2023-2 5 season) 2024 05/06/2021, 09/01/2020, 08/04/2020 PHQ-2 (Physician [place]) 06/09/2024 01/27/2023 Pneumococcal Vaccine: 50+ Years Completed 02/24/2017, 05/15/2012 Meningococcal B Vaccine Aged Out No l onger eligible based on patient's age to complete this topic Meningococcal Vaccine Aged Out No erika mario eligible based on patient's age to complete this topic RSV Immunizations Under 20 Months Aged Out No longer eligible b ased on patient's age to complete this topic Procedures Procedure Name Priority Date/Time Associated Diagnosis Comments COLLECTION VENOUS BLOOD VENIPUNCTURE Routine 08/30/2024 9:07 AM CDT Primary hypertension LIPID PANEL Routine 08/30/2024 9:02 AM CDT Primary hypertension COMPREHENSIVE METABOLIC PANEL Routine 08/30/2024 9:02 AM CDT Primary hypertension COLLECT.CAPILLARY (FNGR,HEEL,EAR) Routine 08/30/2024 8:28 AM CDT Prediabetes HEMOGLOBIN, GLYCOSYLATED Routine 08/30/2024 Prediabetes from Last 3 Months Results * (ABNORMAL) COMPREHENSIVE METABOLIC PANEL (08/30/2024 9:02 AM CDT) [facility] GLUCOSE 104(H) 70 - 99 MG/DL 08/30/2024 1:32 PM CDT [facility] BUN 29(H) 7 - 18 MG/DL 08/30/2024 1:32 PM CDT [facility] CREATININE S/P/B 1.75(H) 0.7 - 1.3 MG/DL 08/30/2024 1:32 PM T [facility] SODIUM S/P/B 139 136 - 145 MMOL/L 08/30/2024 1:32 PM CDT [facility] POTASSIUM S/P/B 5.1 3.5 - 5.1 MMOL/L 08/30/2024 1:32 PM T [facility] CHLORIDE S/P/B 104 100 - 108 MMOL/L 08/30/2024 1:32 PM T [facility] CO2 22.7 21 - 32 MMOL/L 08/30/2024 1:32 PM CDT [facility] CALCIUM S/P/B 9.4 8.5 - 10.1 MG/DL 08/30/2024 1:32 PM T [facility] BILIRUBIN TOTAL S/P/B 0.4 0.2 - 1.2 MG/DL 08/30/2024 1:32 PM T [facility] TOTAL PROTEIN S/P/B 7.4 6.4 - 8.2 G/DL 08/30/2024 1:32 PM CDT [facility] ALBUMIN S/P/B 4.3 3.4 - 5.0 G/DL 08/30/2024 1:32 PM CDT [facility] AST 22 15 - 37 U/L 08/30/2024 1:32 PM CDT [facility] ALT 33 16 - 60 U/L 08/30/2024 1:32 PM CDT [facility] ALKALINE PHOSPHATASE S/P/B 94 50 - 136 U/L 08/30/2024 1:32 PM T [facility] ANION GAP 12.3 5 - 15 MMOL/L 08/30/2024 1:32 PM T [facility] BUN CREATININE RATIO 16.6 6 - 26 08/30/2024 1:32 PM T [facility] A/G RATIO 1.4 1.0 - 2.0 RATIO 08/30/2024 1:32 PM T [facility] GFR ESTIMATE 38(L) >90 ML/MIN/1.7 3 M2 08/30/2024 1:32 PM T [facility] Comment: NOTE: eGFR is not calculated for patients <18 years of age. This is an estimated GFR calculation using the new CKD EPI creatinine equation without race and so does not require a correction factor for race. This estimated GFR should not be used for calculating drug doses. 08/30/2024 9:02 AM CDT us Yifan Duke MD LABORATORY Final Resul t [facility] [address] [place] [address], [place] [phone] * (ABNORMAL) LIPID PANEL (08/30/2024 9:02 AM CDT) CHOLESTEROL 121 <200.0 MG/DL 08/30/2024 1:32 PM CDT [facility] TRIGLYCERIDES 94 <150 MG/DL 08/30/2024 1:32 PM T [facility] HDL 39(L) >40.0 MG/DL 08/30/2024 1:32 PM CDT [facility] LDL (CALCULATED) 63 <100 MG/DL 08/31/19 1:32 PM CDT [facility] NON HDL CHOLESTEROL 82 <130 MG/DL 08/30 1:32 PM T [facility] CHOL/HDL RATIO 3.1 0.0 - 4.5 08/30/2024 1:32 PM T [facility] VLDL CALCULATION 19 5 - 55 MG/DL 08/30/2024 1:32 PM T [facility] LIPID INTERPRETATION 08/30/2024 1:32 PM T [facility] Comment: NIH CONCENSUS REPORT RECOMMENDATIONS: ADULT CHILD LOW RISK: CHOLESTEROL <200 <170 TRIGLYCERIDE <150 --- HDL >=60 --- LDL <100 <110 BORDERLINE: CHOLESTEROL 200-239 170-199 TRIGLYCERIDE 150-199 --- HDL 40-59 --- LDL 100-159 110-129 HIGH RISK: CHOLESTEROL >=240 >=200 TRIGLYCERIDE >=200 --- HDL <40 --- LDL >=160 >=130 08/30/2024 9:02 AM CDT us Yifan Duke MD LABORATORY Final Resul t [facility] [address] [place] [address], [place] [phone] * HEMOGLOBIN, GLYCOSYLATED (08/30/2024) HGB A1C 5.6 % [id number] T [facility]A 08/30/2024 us Yifan Duke MD LABORATORY Final Resul t [id number] MARLE[facility] GRIGGS [address] [place] [address], [place] [phone] from Last [address] [place] [address] [facility] MEDICARE PART A Care Teams Household Manager Relationship Specialty [place] [address] [place] [address] PCP - General FAMILY PRACTICE 09/14/18
--- OUTSIDE RECORDS SUMMARY | 2024-10-09 14:45 | XMS_ITS | Clinical Summary ---
Author Organization [facility] [employer] Address [address] [place] [address] Care Team Providers Care Clerk Manager Name Role Phone Yifan Duke MD Primary Care Provider [phone] Source Comments [facility] [employer],non-owned Affiliates and Associated Physician Practices is amultiple site organization consisting of ambulatory clinics and hospital sitesin [place], [place], [place] and [place]. This disclosure is being madepursuant to the Care Everywhere program and may not contain all information available regarding this patient. Last updated 18.[facility] [employer] Allergies Active Allergy Reactions Criticality Noted Date Comments Penicillins Other Low 10/26/2015 tongue turned black Medications * Be aware that medications may not be up to date on this document. Alwaysverify current medications with the patient. amLODIPine (NORVASC) 5 MG tablet Take 5 mg by mouth once daily 05/15/2015 Active doxazosin (CARDURA) 4 MG tablet Take 4 mg by mouth every evening 09/07/2015 Active naproxen (NAPROSYN) 500 MG tablet 05/24/2015 Active Active Problems Problem Noted Date Diagnosed Date Enlarged prostate without lo wer urinary tract symptoms (luts) 11/10/2015 Unspecified symptoms and sig ns involving the genitourinary system 07/20/2015 Family History Medical History Relation Name Comments Cancer Brother Status: d Lung Disease Brother Cancer Father Status: d Cancer - Prostate Maternal Grandfather St atus: None Known Maternal Grandmother Status: None Known Mother Status: d None Known Paternal Grandfather Status: None Known Paternal Grandmother Status: None Known Sister None Status: Alive Relation Name Status Comments Brother Father Maternal Grandfather Maternal Grandmother Mother Paternal Grandfather Paternal Grandmother Sister None Social History Tobacco Use Types Packs/Day Years Used Date Smoking Tobacco: Former Cigarettes Smokeless Tobacco: Never Alcohol Use Standard Drinks/Week Comments Yes 0 (1 standard drink = 0.6 oz pur e alcohol) Sex and Gender Information Value Date Recorded Sex Assigned at Not on file 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 Gender Identity Not on file Sexual Orientation Not on file Last Filed Vital Signs Vital Sign Reading Time Taken Comments Blood Pressure 151/81 12/16/2017 3:46 PM CDT Pulse 85 12/16/2017 3:46 PM CDT Temperature 36.9 C (98.4 F) 12/16/2017 3:46 PM CDT Respiratory Rate 16 11/11/2015 12:28 PM CDT Oxygen Saturation 96% 12/16/2017 3:46 PM CDT Inhaled Oxygen Concentration - - Weight 101.6 kg (224 lb) 12/16/2017 3:46 PM CDT Height 185.4 cm (6' 1 ) 12/16/2017 3:46 PM CDT Body Mass Index 29.55 12/16/2017 3:46 PM CDT Plan of Treatment Health Maintenance Due Date Last Done Comments DTAP/TDAP/TD VACCINES (1 - Tdap) 1959 PNEUMOCOCCAL VACCINE 50+ (1 of 1 - PCV) 1988 ZOSTER VACCINE (1 of 2) 1988 Respiratory Syncytial Virus (RSV) Vaccine Pt: or over 60 yrs (1 - 1-dose 75+ series) 2013 COVID-19 VACCINE ( - 2023-2 5 season) 2024 DEPRESSION SCREENING 06/09/2024 INFLUENZA VACCINE (Season Ended) 2025 HEPATITIS B VACCINE Aged Out No longe r eligible based on patient's age to complete this topic HIB VACCINE Aged Out No longer eligi ble based on patient's age to complete this topic HPV VACCINE Aged Out No longer eligi ble based on patient's age to complete this topic MENINGOCOCCAL (Group B) VACC INE SHARED DECISION-MAKING Aged Out No longer eligibl e based on patient's age to complete this topic MENINGOCOCCAL GROUPS A/C/Y/W VACCINE Aged Out No longer eligible b ased on patient's age to complete this [place] [address] [facility] Care Teams Clerk Manager Relationship Specialty Start Date End Date Yifan Duke MD PCP - General 05/28/16
[2024-10-11 14:33] LABS: Creat 24 Hr 1.52 g/24 h (0.50-2.15); Pro/Creat Ratio 128 mg/g creat (<100); Pro/Creat Ratio mg/mg 0.128 (<0.100); Protein,total, 24 Hr Ur 195 mg/24 h (<150)
== END 2024-10-08 14:58 | disposition home or self-care (01) ==
LOC: ANHLAB 14:57
PROVIDERS: PCP Family Medicine; Visit Provider Internal Medicine Nephrology
DX: R94.4 Abnormal results of kidney function studies (principal)
CPT/HCPCS: 81050; 84540; 86335

== ENCOUNTER 2025-01-21 10:32 | Outpatient (CLI) | payer BC, SELFPAY ==
--- OUTSIDE RECORDS SUMMARY | 2025-01-21 10:39 | XMS_ITS | Clinical Summary ---
Author Organization [facility] Address [address] [place] [address] Care Team Providers Care Casino Slot Supervisor Name Role Phone Yifan Duke MD Primary Care Provider [phone] Allergies Active Allergy Reactions Criticality Noted Date [...] on file Legal Sex Male 5:21 AM COUNTER STACKER Gender Identity Not on file Sexual Orientation Not on file Obstetrics History Last Filed Vital Signs Vital Sign Reading Time Taken Comments Blood Pressure 138/78 08/02/2024 10:22 AM COUNTER STACKER Pulse 79 08/02/2024 10:22 AM COUNTER STACKER Temperature 36.3 C (97.3 F) 04/16/2017 8:19 AM COUNTER STACKER Respiratory Rate - - Oxygen Saturation 99% 04/16/2017 8:19 AM COUNTER STACKER Inhaled Oxygen Concentration - - Weight 102.1 kg (225 lb) 08/02/2024 10:22 AM COUNTER STACKER Height 185.4 cm (6' 1) 08/02/2024 10:22 AM COUNTER STACKER Body Mass Index 29.69 08/02/2024 10:22 AM COUNTER STACKER Plan of Treatment Health Maintenance Due Date Last Done Comments Depression Screening 1938 Fall Risk Assessment 1938 DTaP/Tdap/Td Vaccine (1 - Tdap) 1949 Hepatitis B Screening 1956 Zoster Vaccine (1 of 2) 1988 Well Visit 65+ 12/14/2003 Covid-19 Vaccine (4 - 2023-2 5 season) 2024 05/06/2021, 09/01/2020, 08/04/2020 Influenza Vaccine (#1) 2025 , 03/29/2022, 05/06/2021, Additional history exists Pneumococcal vaccine 65+ Completed 02/24/2017, 12/2011 Insurance MEDICARE [facility] [employer] Care Teams Casino Slot Supervisor Relationship Specialty [place] [address] [place] [address] PCP - General Family Practice 03/29/24
--- OUTSIDE RECORDS SUMMARY | 2025-01-21 10:39 | XMS_ITS | Clinical Summary ---
Author Organization [facility] [employer] Address [address] [facility] [place] [address] Care Team Providers Care Merchandise Worker Name Role Phone Yifan Duke MD Primary Care Provider [phone] Source Comments [facility] [employer],non-owned Affiliates and Associated Physician Practices is amultiple site organization consisting of ambulatory clinics and hospital sitesin [place], [place], [place] and [place]. This disclosure is being madepursuant to the Care Everywhere program and may not contain all information available regarding this patient. 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
--- OUTSIDE RECORDS SUMMARY | 2025-01-21 10:39 | XMS_ITS | Encounter Summary ---
Author Organization [facility] Care Team Providers Care Auto Appraiser Name Role Phone Yifan Duke MD Primary Care Provider [phone] Encounter Details Date Type Department Care Team (Latest Contact Info) Description 01/01/2017 Orders Only [facility]INCON[facility] ProviderAbby MD [address] [place] [address] Social History Tobacco Use Types Packs/Day Years Used Date Smoking Tobacco: Never Assessed Sex and Gender Information Value Date Recorded Sex Assigned at Not on file Legal Sex Male 5:21 AM INTERPRETER DEAF Gender Identity Not on file Sexual Orientation [...] on filedocumented in this encounter Care Teams Auto Appraiser Relationship Specialty [place] [address] [address] PCP - General Family Practice 03/29/24 documented as of this encounter
--- OUTSIDE RECORDS SUMMARY | 2025-01-21 10:39 | XMS_ITS | Continuity of Care Document ---
Author Organization [facility] Address [address] [place] [address] [address] [place] [address] Phone Care Team Providers Care Cytogenetic Technician Name Role Phone Marquez Palmer Unavailable Unavailable Procedures Procedure Date Eye Exam & Treatment Refraction Office/outpatient Visit, [facility] No Script Advance Directives Directive Yes / No Effective Date File Name No Information Encounters Encounter Description Practice Location Reason(s) For Visit Diagnoses Date Provider Providers Copied on Encounter [facility], [id number] [place] [address] [address], [place], [place], [id number], [place] tel:[phone] [facility] No Information 0 Estela Zayas. [address] , [address], [place], [place], [facility] [place], [place]. tel:[phone] Office/outpat ient Visit, [facility], [address] [place] [address] [address], [place], [place], [id number], [place] tel:[phone] [facility] No Information [address] Reynoso. [address] [facility] [address], [place], [place], [facility] [place], [place]. tel:[phone] Family History Family Member Type Diagnosis Age At Onset No Information Payers Payer name Insurance type Covered libertarian ID Authoriza tion(s) [place] FEP BL [id number] Social History Type Description Quantity Date Captured [...]
--- OUTSIDE RECORDS SUMMARY | 2025-01-21 10:39 | XMS_ITS | Encounter Summary ---
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 Historical Provider Final Res ult documented in this encounter Visit Diagnoses Not on filedocumented in this encounter Care Teams Sole Buffer Relationship Specialty [place] [address] [address] PCP - General Family Practice 03/29/24 documented as of this encounter
[2025-01-21 11:31] LABS: Hematocrit 42.7 % (42.0-52.0); Hemoglobin 13.9 g/dL (14.0-18.0); Mean Corpuscular HGB Conc 32.6 g/dl (32-36); Mean Corpuscular Hemoglobin 28.5 pg (26-34); Mean Corpuscular Volume 87.7 fl (80-100); Platelet Count Result 185 k/mm3 (150-375); Red Blood Count 4.87 M/mm3 (4.6-6.20); White Blood Count 7.6 K/mm3 (4.5-10.0)
[2025-01-21 11:44] LABS: Total Protein Urine Random 24 mg/dL; Ur Ttl Prot Creatinine Ratio 0.31 mg/mg (0-0.20)
[2025-01-21 11:55] LABS: Albumin Level 4.3 g/dL (3.5-5.1); Anion Gap 10 mmol/L (4-12); Blood Urea Nitrogen 21 mg/dL (9-20); Calcium 9.5 mg/dL (8.4-10.2); Carbon Dioxide 22 mmol/L (22-30); Chloride 107 mmol/L (98-107); Estimated Glomerular Filt Rate 55; Glucose 88 mg/dL (65-110); Potassium 4.4 mmol/L (3.4-5.0); Sodium 139 mmol/L (137-145)
[2025-01-21 12:07] LABS: Parathyroid Intact 34.5 pg/mL (14.5-75.2)
== END 2025-01-21 10:33 | disposition home or self-care (01) ==
LOC: ANHLAB 10:36
PROVIDERS: PCP Family Medicine; Visit Provider Internal Medicine Nephrology
DX: G62.9 Polyneuropathy, unspecified (principal)
CPT/HCPCS: 36415; 80069; 82570; 83970; 84156; 85027

== ENCOUNTER 2025-02-10 09:49 | Emergency (ER) | payer BC, SELFPAY ==
[2025-02-10 10:04] VITALS: BP 161/78; PULSE 67; RESP 16; TEMP 36.6; O2SAT 98
--- NOTE | 2025-02-10 10:35 | ED.EXTPRO ---
HPI - Extremity Problem General Chief complaint: Extremity Problem,Nontraumatic Stated complaint: R Foot Pain Source: patient Mode of arrival: ambulatory Limitations: no limitations History of Present Illness HPI Narrative: 84-year-old male presented for complaint of right plantar foot redness and pain around the callus he trimmed recently. Redness is to the ball of the foot at the 1st joint. Denies drainage, streaking, or swelling. Related Data Home Medications ?Medication ?Instructions ?Recorded ?Confirmed ?Last Taken ?Type amlodipine 10 mg tablet 10 mg PO DAILY 04/19/22 02/10/25 Unknown History doxazosin 4 mg tablet 4 mg PO DAILY 04/19/22 02/10/25 Unknown History gabapentin 100 mg capsule 100 mg PO TID 04/19/22 02/10/25 Unknown History aspirin 81 mg tablet 81 mg PO DAILY 02/10/25 02/10/25 Unknown History Allergies Allergy/AdvReac Type Severity Reaction Status Date / Time Penicillins AdvReac Mild Hives Verified 02/10/25 10:00 Review of Systems Review of Systems: CONSTITUTIONAL: Denies body aches, fever, chills, or sweats. EYES: Denies visual changes, redness, or discharge. ENT: Denies rhinorrhea, congestion CARDIOVASCULAR: Denies chest pain, palpitations, or edema. RESPIRATORY: Denies cough or dyspnea. GASTROINTESTINAL: Denies abdominal pain, nausea, vomiting, or diarrhea. SKIN: reports right foot redness MUSCULOSKELETAL: Denies back pain, joint pain, or myalgia. NEUROLOGIC: Denies headache, numbness, tingling, or weakness. [facility] Social History Social History Smoking status: Former smoker Smoking end date: 06/09/82 Alcohol intake: current Comments At time of signature, I have reviewed and agree with nursing past medical, surgical, social and family history unless otherwise noted. Please see nursing chart for further information. There is no relevant family history pertinent to the presenting complaint Exam Narrative: GENERAL: Well-appearing HEAD: Normocephalic, atraumatic. EYES: conjunctivae clear, and EOMI. ENT: Mucous membranes moist. Oropharynx without edema, erythema or lesions. NECK: Supple. No lymphadenopathy CHEST: Clear to auscultation. HEART: Regular rate and rhythm. SKIN: Warm, dry. Right plantar foot 1st MTP with hardened callous formation, appears to have sharp edges c/w trimming, mild surrounding erythema and mild tender with palpation. Nontender dorsal MTP. No swelling. No purulent drainage NEURO: Alert and oriented x3. Course Course Emergency Course: Patient is aware of diagnosis, understands and agrees to treatment plan. Anticipatory guidance given. Patient agrees to follow-up as directed and is aware of reasons to seek care at the emergency department. Portions of this record may have been created with voice recognition software Level of Care: Express Care Visit Vital Signs Vital signs: Vital Signs Temperature 97.8 F 02/10/25 10:04 Pulse Rate 67 02/10/25 10:04 Respiratory Rate 16 02/10/25 10:04 Blood Pressure 161/78 H 02/10/25 10:04 Pulse Oximetry 98 02/10/25 10:04 Oxygen Delivery Room Air 02/10/25 10:04 Temperature 97.8 F 02/10/25 10:04 Pulse Rate 67 02/10/25 10:04 Respiratory Rate 16 02/10/25 10:04 Blood Pressure 161/78 H 02/10/25 10:04 Pulse Oximetry 98 02/10/25 10:04 Oxygen Delivery Room Air 02/10/25 10:04 Reviewed MDM - Extremity (Nontraumatic) MDM Narrative Medical decision making narrative: Discussed physical exam findings, mild erythema to the site site of callous, will send abx. Advised supportive measures and signs/symptoms to go to the ER. Pt is appropriate for outpt treatment and f/u. Differential Diagnosis Differential diagnosis: Likely gout and cellulitis Discharge Plan Discharge Clinical Impression: Cellulitis Patient Disposition: Home Condition: Stable Instructions: Antibiotic Form, Cellulitis (ED) Additional Instructions: Keep the area clean and dry Keep it open to air Tylenol as needed Avoid trimming callouses, please follow up with a clinical material handler for further management Watch for worsening symptoms including pain, redness, swelling, streaking, pus/drainage, fever. Go to the ER with any of these symptoms or concerns. Follow up with primary care provider in 1 week as needed. Patient Language: [place] Prescriptions: New cephalexin 500 mg capsule 500 mg PO Q8H 5 Days Qty: 15 0RF No Action amlodipine 10 mg tablet 10 mg PO DAILY doxazosin 4 mg tablet 4 mg PO DAILY gabapentin 100 mg capsule 100 mg PO TID aspirin 81 mg tablet 81 mg PO DAILY Follow-up/Referrals: Leilani,Yifan Portillo MD [Primary Care Provider] Time of Disposition: 10:46
== END 2025-02-10 10:50 | disposition home or self-care (01) ==
PROVIDERS: Emergency Provider Nurse Practitioner Family; PCP Family Medicine
DX: L03.115 Cellulitis of right lower limb (principal); I10 Essential (primary) hypertension; E78.00 Pure hypercholesterolemia, unspecified; M19.90 Unspecified osteoarthritis, unspecified site; Z87.891 Personal history of nicotine dependence; Z79.82 Long term (current) use of aspirin
CPT/HCPCS: 99213; G0463

== ENCOUNTER 2025-02-24 08:12 | Outpatient (CLI) | payer BC, SELFPAY ==
--- OUTSIDE RECORDS SUMMARY | 2010-04-25 05:30 | XMS_ITS | Continuity of Care Document ---
Author Organization [facility] Address [address] [place] [address] [address] [place] [address] Phone Care Team Providers Care Sales Project Administrator Name Role Phone Marquez Palmer Unavailable Unavailable Procedures Procedure Date Eye Exam & Treatment Refraction Office/outpatient Visit, [facility] No Script Advance Directives Directive Yes / No Effective Date File Name No Information Encounters Encounter Description Practice Location Reason(s) For Visit Diagnoses Date Provider Providers Copied on Encounter [facility], [id number] [place] [address] [address], [place], [place], [id number], [place] tel:[phone] [facility] No Information 0 Estela Zayas. [address] , [address], [place], [place], [facility] [place], [place]. tel:[phone] Office/outpat ient Visit, [facility], [address] [place] [address] [address], [place], [place], [id number], [place] tel:[phone] [facility] No Information [address] Armand Reynoso. [address] [facility] [address], [place], [place], [facility] [place], [place]. tel:[phone] Family History Family Member Type Diagnosis Age At Onset No Information Payers Payer name Insurance type Covered libertarian ID Authoriza tion(s) [place] F[place] BL [id number] Social History Type Description Quantity Date Captured Comments Sex Male Smoking Status No Information Chief Complaint And Reason For Visit No Information Reason For Referral Reason For Referral No Information History Of Present Illness Encounter Date Complaint History Of Prese nt Illness No Information Functional Status Date Functional Assessmen t No Information Instructions Date Instruction Additional Infor mation No Information Assessments Type Assessment Date No Information Patient Care Teams Name Effective Dates (start - stop) Status Members No Information
--- NOTE | ~2025-02-24 | CT_ITS ---
EXAMINATION: CT abdomen pelvis wo/w con DATE: 02/24/2025 08:57 INDICATION: Left hydronephrosis. TECHNIQUE: Computed tomography (CT) of the abdomen and pelvis was performed without and with intravenous contrast using a total of 130 mL Omnipaque-350 intravenous contrast with a double-bolus technique for simultaneous opacification of the renal parenchyma and renal collecting system. Automated exposure control and iterative reconstruction technique were employed. The dose- length product was 1666.58 mGy-cm. COMPARISON: CT abdomen and pelvis 06/23/2012 FINDINGS: The visualized portions of the lung bases demonstrate mild atelectasis. Calcified right lung nodules and calcified right hilar lymph nodes are consistent with old granulomatous disease. No pleural effusion. The heart size is normal. There are coronary artery calcifications. No pericardial effusion. Calcifications in the liver and spleen are consistent with old granulomatous disease. The gallbladder, pancreas, and adrenal glands are normal. There are cysts in the kidneys including peripelvic cysts measuring up to 4.9 cm on the left. 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 There is no urolithiasis. The ureters are well opacified and are normal. The bladder demonstrates a small diverticulum anteriorly. The prostate is moderately enlarged. There is diverticulosis of the colon without evidence of diverticulitis. There are no dilated loops of bowel. The appendix is normal. There are no pathologically enlarged lymph nodes. There is no free intraperitoneal fluid. There is severe lumbar and thoracic spondylosis. IMPRESSION: 1. No hydronephrosis. Reviewed, dictated and finalized at location E. IMPRESSION: 1. No hydronephrosis.
--- OUTSIDE RECORDS SUMMARY | 2025-02-24 08:31 | XMS_ITS | Encounter Summary ---
Author Organization [facility] Care Team Providers Care Electrical Panel Builder Name Role Phone Yifan Duke MD Primary Care Provider [phone]- [phone] Encounter Details Date Type Department Care Team (Latest Contact Info) Description 05/23/2016 Orders Only [facility] CLINCONV ProviderAbby MD [address] [place] [id number] Social History Tobacco Use Types Packs/Day Years Used Date Smoking Tobacco: Never Assessed Sex and Gender Information Value Date Recorded Sex Assigned at Not on file Legal Sex Male 5:21 AM ROLLER Gender Identity Not on file Sexual Orientation Not on file documented as of this encounter Plan of Treatment Not on file documented as of this encounter Procedures Procedure Name Priority Date/Time Associated Diagnosis Comments PROCEDURE - RESULT 05/23/2016 12 :00 AM ROLLER documented in this encounter Results * PROCEDURE - RESULT (05/23/2016 12:00 AM ROLLER) Narrative 05/23/2016 12:00 AM ROLLER Ordered by an unspecified provider. Historical Provider Final Res ult documented in this encounter Visit Diagnoses Not on filedocumented in this encounter Care Teams Electrical Panel Builder Relationship Specialty [place] [id number] [address] PCP - General Family Practice 03/29/24 documented as of this encounter
--- OUTSIDE RECORDS SUMMARY | 2025-02-24 08:31 | XMS_ITS | Clinical Summary ---
Author Organization [facility] Address [address] [place] [address] Care Team Providers Care Inspection Clerk Name Role Phone Yifan Duke MD Primary Care Provider +1- [phone] Allergies Active Allergy Reactions Criticality Noted Date [...] on file Legal Sex Male 5:21 AM HVAC ENGINEERING TECHNICIAN Gender Identity Not on file Sexual Orientation Not on file Obstetrics History Last Filed Vital Signs Vital Sign Reading Time Taken Comments Blood Pressure 138/78 08/02/2024 10:22 AM HVAC ENGINEERING TECHNICIAN Pulse 79 08/02/2024 10:22 AM HVAC ENGINEERING TECHNICIAN Temperature 36.3 C (97.3 F) 04/16/2017 8:19 AM HVAC ENGINEERING TECHNICIAN Respiratory Rate - - Oxygen Saturation 99% 04/16/2017 8:19 AM HVAC ENGINEERING TECHNICIAN Inhaled Oxygen Concentration - - Weight 102.1 kg (225 lb) 08/02/2024 10:22 AM HVAC ENGINEERING TECHNICIAN Height 185.4 cm (6' 1) 08/02/2024 10:22 AM HVAC ENGINEERING TECHNICIAN Body Mass Index 29.69 08/02/2024 10:22 AM HVAC ENGINEERING TECHNICIAN Plan of Treatment Health Maintenance Due Date Last Done Comments Depression Screening 1938 Fall Risk Assessment 1938 DTaP/Tdap/Td Vaccine (1 - Tdap) 1949 Hepatitis B Screening 1956 Zoster Vaccine (1 of 2) 1988 Well Visit 65+ 12/14/2003 Covid-19 Vaccine (4 - 2024-2 6 season) 2025 05/06/2021, 09/01/2020, 08/04/2020 Influenza Vaccine (#1) 2025 , 03/29/2022, 05/06/2021, Additional history exists Pneumococcal vaccine 65+ Completed 02/24/2017, 12/2011 Insurance MEDICARE [facility] FEDERAL [facility] FEDERAL MEDICARE Care Teams Inspection Clerk Relationship Specialty [place] [address] [place] [address] PCP - General Family Practice 03/29/24
--- OUTSIDE RECORDS SUMMARY | 2025-02-24 08:31 | XMS_ITS | Encounter Summary ---
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
--- OUTSIDE RECORDS SUMMARY | 2025-02-24 08:31 | XMS_ITS | Clinical Summary ---
Author Organization [facility] Address [address] [place] [address] Care Team Providers Care Sliding Joint Maker Name Role Phone Yifan Duke MD Primary Care Provider +1 [phone] Source Comments [facility],non-owned Affiliates and Associated Physician Practices is amultiple site organization consisting of ambulatory clinics and hospital sitesin [place], [place], [place]. This disclosure is being madepursuant to the Care Everywhere program and may not contain all information available regarding this patient. 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
[2025-02-24 08:42] LABS: Estimated Glomerular Filt Rate 52
== END 2025-02-24 08:13 | disposition home or self-care (01) ==
PROVIDERS: PCP Family Medicine; Visit Provider Urology
DX: N13.30 Unspecified hydronephrosis (principal)
CPT/HCPCS: 74178; Q9967